=== PATIENT | male | born 1970 | race Caucasian/White ===

== ENCOUNTER 2023-01-01 15:48 | Emergency (ER) | payer SELFPAY ==
--- NOTE | 2023-01-01 15:54 | ED.URI ---
HPI - URI/Sore Throat General Chief Complaint: Upper Respiratory Infection Stated Complaint: Allergies Time Seen by Provider: 01/01/23 16:14 Source: patient and RN notes reviewed Mode of arrival: ambulatory Limitations: no limitations History of Present Illness HPI Narrative: 52-year-old male presents with concern for chronic intermittent allergy problems. He reports he has been trying multiple [id number] and histamines without relief. He reports copious clear postnasal drainage, worse that night. Reports itchy eyes, dry cough, feeding. He reports he has felt short of breath and fatigue for the last 2 days. He denies fever, chills, sweats, purulent sinus drainage. He does not currently have a primary care provider. He reports unintended weight loss about 20 lb this year. He also reports intermittent headache MD elicited complaint: rhinorrhea Related Data Allergies Allergy/AdvReac Type Severity Reaction Status Date / Time No Known Allergies Allergy Verified 01/01/23 16:09 Review of Systems Review of Systems: CONSTITUTIONAL: Reports malaise, fatigue. Reports unintentional weight loss. Denies chills, sweats, or fever. EYES: Denies visual changes, redness, or discharge. ENT: Reports rhinorrhea, intermittent congestion. Denies sinus pain, otalgia and sore throat. CARDIOVASCULAR: Denies chest pain, palpitations, or edema. RESPIRATORY: Reports cough. Denies dyspnea. GASTROINTESTINAL: Denies abdominal pain, nausea, vomiting, diarrhea SKIN: Denies rash or itching. MUSCULOSKELETAL: Denies myalgia. NEUROLOGIC: Reports intermittent headache. All systems reviewed & are unremarkable except as noted in HPI and below PMFSH Comments At time of signature, agree with nursing past medical, surgical, social and family history. There is no relevant family history pertinent to the presenting complaint Exam Narrative: GENERAL: Well-appearing, well-nourished, and in no acute distress. HEAD: Normocephalic EYES: PERRLA, conjunctivae clear ENT: Nares clear, turbinates edematous and erythematous, clear discharge. Mucous membranes moist. TM pearly day with dull light reflex bilaterally; no tragal tenderness. Oropharynx not erythematous without lesions. Tonsils not enlarged and without exudate, no drooling, no hoarseness, no trismus, uvula midline. NECK: Supple. No lymphadenopathy CHEST: Clear to auscultation, breath sounds equal. No wheezing, rhonchi, rales, or stridor. No respiratory distress, speaks in full sentences. HEART: Regular rate and rhythm. No murmur heard. SKIN: Warm, dry, no rash. NEURO: Alert and oriented x3. PSYCH: Normal mood and affect Course Course Emergency Course: I advised patient that he needs to seek consultation from a primary care provider for his unintended weight loss, fatigue. Patient was given information for primary care providers. Patient is aware of diagnosis, understands and agrees to treatment plan. Anticipatory guidance given. Patient agrees to follow-up as directed and is aware of reasons to seek care at the emergency department. Portions of this record may have been created with voice recognition software Level of Care: Express Care Visit Vital Signs Vital signs: Vital Signs Temperature 96.4 F L 01/01/23 16:00 Pulse Rate 97 01/01/23 16:00 Respiratory Rate 14 01/01/23 16:00 Blood Pressure 144/83 H 01/01/23 16:00 Pulse Oximetry 99 01/01/23 16:00 Oxygen Delivery Room Air 01/01/23 16:00 Temperature 96.4 F L 01/01/23 16:09 Pulse Rate 97 01/01/23 16:09 Respiratory Rate 14 01/01/23 16:09 Blood Pressure 144/83 H 01/01/23 16:09 Pulse Oximetry 99 01/01/23 16:09 Oxygen Delivery Room Air 01/01/23 16:09 Reviewed. MDM - URI/Sore Throat MDM Narrative Medical decision making narrative: Differential diagnosis considered: Taylor virus, strep pharyngitis, allergic rhinitis, upper respiratory tract infection, sinusitis, rhinosinusitis, nasopharyngitis. vir
[2023-01-01 16:00] VITALS: BP 144/83; PULSE 97; RESP 14; TEMP 35.8; O2SAT 99
[2023-01-01 16:09] VITALS: BP 144/83; PULSE 97; RESP 14; TEMP 35.8; O2SAT 99
== END 2023-01-01 16:39 | disposition home or self-care (01) ==
PROVIDERS: Emergency Provider Nurse Practitioner
DX: J01.90 Acute sinusitis, unspecified (principal)
CPT/HCPCS: 99213; G0463